=== PATIENT | male | born 1940 | race Caucasian/White ===

== ENCOUNTER 2025-05-05 19:28 | Emergency (ER) | payer MEDICARE | END 2025-05-05 22:13 | disposition home or self-care (01) | LOC: JP.ED 19:28 | DX: S52.571A Other intraarticular fracture of lower end of right radius, initial encounter for closed fracture (principal); Z79.899 Other long term (current) drug therapy; W10.0XXA Fall (on)(from) escalator, initial encounter | CPT/HCPCS: 29125; 73110-26-RT; 73110-RT; 99283-25 ==

== ENCOUNTER 2025-05-08 07:14 | Day surgery (SDC) | payer MEDICARE ==
[2025-05-08] MEDS ORDERED: fentaNYL 100 MCG/2 ML SDV ONE ×2 (07:20→09:44)
[2025-05-08] MEDS ORDERED: Propofol 200 MG/20 ML SDV ONE (07:20)
[2025-05-08] MEDS ORDERED: Dexamethasone 4 MG/ML SDV ONE (07:20)
[2025-05-08] MEDS ORDERED: Ondansetron 4 MG/2 ML SDV ONE (07:20)
[2025-05-08] MEDS: Lactated Ringers 1,000 ML IV SCH (07:45)
[2025-05-08] MEDS: Nozin Nasal Sanitizer NASBOTH ONE (07:51)
[2025-05-08 07:56] LABS: PLATELET COUNT,PLT 257.0 K/uL (130-375); RED BLOOD CELL COUNT 4.27 M/uL (4.14-5.76); WHITE BLOOD CELL COUNT,WBC 6.7 K/uL (3.2-11.0)
[2025-05-08 08:02] LABS: BLOOD UREA NITROGEN,BUN 15 mg/dL (7-18); CARBON DIOXIDE,CO2 25 mmol/L (21-32); CHLORIDE,CL 102 mmol/L (100-108); CREATININE 1.1 mg/dL (0.8-1.3); ESTIMATED GFR 67 mL/min (>60); GLUCOSE RANDOM 117 mg/dL (74-106); POTASSIUM,K 3.9 mmol/L (3.6-5.2); SODIUM,NA 136 mmol/L (140-148)
[2025-05-08] MEDS ORDERED: ePHEDrine 50 MG/ML SDV ONE (09:52)
[2025-05-08] MEDS ORDERED: Succinylcholine 200 MG/10 ML MDV ONE (09:54)
[2025-05-08] MEDS ORDERED: Ketorolac 30 MG/ML SDV ONE (10:35)
== END 2025-05-08 12:15 | disposition home or self-care (01) ==
LOC: JP.SDS 07:14
PROVIDERS: ATTEND Specialist
DX: S52.571A Other intraarticular fracture of lower end of right radius, initial encounter for closed fracture (principal); X58.XXXA Exposure to other specified factors, initial encounter
CPT/HCPCS: 01830-QZ; 36415; 76000; 80048; 85027; 93005; 93010; A9270-GY; C1713; J0330; J0665; J0690; J1100; J1885; J2405; J2704; J3010; J3490; J7120